=== PATIENT | female | born 1970 | race Caucasian/White ===

== ENCOUNTER 2017-03-25 01:00 | Emergency (ER) | payer BC ==
[~2017-03-25] VITALS: Ht 172.7 cm; Wt 97.1 kg
[2017-03-25] MEDS ORDERED: IV NORMAL SALINE 1,000ML 1,000 ML ONE (01:10)
[2017-03-25] MEDS ORDERED: KETOROLAC 30 MG/ML VIAL. IV ONE (01:15)
[2017-03-25] MEDS ORDERED: IV NORMAL SALINE 1,000ML 1,000 ML IV ONE (01:15)
[2017-03-25] MEDS ORDERED: HYDROmorphone PF 1 MG/ML DISP.SYRIN IV ONE (01:15)
[2017-03-25] MEDS ORDERED: ONDANSETRON PF 4 MG/2 ML VIAL. IV ONE (01:15)
[2017-03-25 02:06] LABS: ALBUMIN 4.2 g/dL (3.4-5.0); ALBUMIN/GLOBULIN RATIO 1.1 (1.0-1.7); CALCIUM 9.5 mg/dL (8.5-10.1); CREATININE 0.8 mg/dL (0.6-1.0); GFR 76.6; POTASSIUM 3.9 mmol/L (3.5-5.1); TOTAL BILIRUBIN 0.3 mg/dL (0.2-1.0); TOTAL PROTEIN 8.2 g/dL (6.4-8.2)
[2017-03-25 02:10] LABS: BASO # 0.1 x10^3/uL (0.0-0.2); BASO % 1 % (0-3); EOS # 0.1 x10^3/uL (0.0-0.7); EOS % 0 % (0-3); HEMATOCRIT 47.5 % (36.0-47.0); HEMOGLOBIN 16.3 g/dL (12.0-15.5); LYMPH # 2.5 x10^3/uL (1.0-4.8); LYMPH % 18 % (24-48); MEAN CORPUSCULAR HEMOGLOBIN 33 pg (25-35); MEAN CORPUSCULAR HGB CONC 34 g/dL (31-37); MEAN CORPUSCULAR VOLUME 97 fL (79-100); MONO # 0.8 x10^3/uL (0.0-1.1); MONO % 6 % (0-9); NEUT # 10.5 x10^3uL (1.8-7.7); NEUT % 75 % (31-73); PLATELET COUNT 251 x10^3/uL (140-400); RED BLOOD COUNT 4.92 x10^6/uL (3.50-5.40); RED CELL DISTRIBUTION WIDTH 13.9 % (11.5-14.5)
--- NOTE | 2017-03-25 02:21 | RAD ---
Examination: Ultrasound abdomen right upper quadrant HISTORY: History of right upper quadrant pain COMPARISON: None available Findings: The pancreas is not well-visualized. Visualized IVC appears patent. The echogenicity liver grossly appears unremarkable. The right lobe of the liver measures 16.0 cm. No evidence of gallstones identified within the gallbladder. The gallbladder wall thickness measures 2.1 mm. The common bile duct measures 4.1 mm in transverse dimension. The right kidney measures 10.0 cm in length. IMPRESSION: 1. No evidence of gallstones. Unremarkable visualized exam. Electronically signed by: Jeff Sage MD (03/25/2017 2:19 AM) [id number]
[2017-03-25 03:15] LABS: BILIRUBIN,URINE NEG (NEG); CLARITY,URINE CLOUDY; COLOR,URINE YELLOW; GLUCOSE,URINE NEG (NEG)
[2017-03-25 03:16] LABS: AMORPHOUS SEDIMENT,UR PRESENT /HPF; BACTERIA,URINE MOD /HPF (0-FEW); NITRITE,URINE NEG (NEG); RBC,URINE OCC /HPF (0-2); SQUAMOUS EPITHELIAL CELL,UR MOD /LPF; UROBILINOGEN,URINE 0.2 mg/dL (0.2 mg/dL)
[2017-03-25] MEDS ORDERED: IOHEXOL 300 MG/ML 75 ML VIAL. IV ONE (03:30)
[2017-03-25 03:34] VITALS: BP 123/49
[2017-03-25] MEDS ORDERED: CONTRAST GIVEN MC PRN (03:45)
--- NOTE | 2017-03-25 04:35 | RAD ---
Examination: CT of the abdomen pelvis with IV contrast. HISTORY: History of upper abdominal pain COMPARISON: None available TECHNIQUE: Axial CT images of the abdomen pelvis were performed with IV contrast. Coronal and sagittal reformats are performed Exposure: One or more of the following individualized dose reduction techniques were utilized for this examination: 1. Automated exposure control 2. Adjustment of the mA and/or kV according to patient size 3. Use of iterative reconstruction technique FINDINGS: Minimal bibasilar lung atelectasis. No evidence of free air identified in the abdomen. The visualized liver demonstrates tiny subcentimeter hypodensity the left lobe of the liver probably cyst is too small to characterize. The visualized spleen, adrenals grossly appears unremarkable. The gallbladder is mildly distended. The stomach is mildly distended with fluid. Few fluid distended small bowel loops identified in the mid abdomen. Minimal fat stranding identified about the distended small bowel loops in the left mid abdomen. The appendix is normal. Feces and gas noted in the colon. Urinary bladder is mildly distended. The bilateral kidneys enhance symmetrically. The caliber of the aorta grossly appears unremarkable. No evidence of lytic bony destructive lesion. Prior changes of inguinal hernia repair. IMPRESSION: 1. Multiple fluid distended small bowel loops identified in the mid abdomen with minimal fat stranding about the distended small bowel loops in the left midabdomen , partial small bowel obstruction or enteritis are possibilities. Electronically signed by: Jeff Sage MD (03/25/2017 4:32 AM) [facility]
[2017-03-25] MEDS ORDERED: HYOS0.1265 SL (05:22)
[2017-03-25] MEDS ORDERED: HYDR-971 PO (05:22)
--- NOTE | 2017-03-25 05:22 | PHYS DOC ---
Past History Past Medical History: Other Past Surgical History: Other Alcohol Use: None Drug Use: None Social History Narrative: Home with family Adult General Chief Complaint Chief Complaint: ABDOMINAL PAIN HPI HPI Patient is a 46-year-old female who presents here today complaining of abdominal pain and crampiness around 10:30 PM. Patient reports that she had been up around 8 PM or so. Patient reports the pain got severe around midnight and so came to the ER. Patient reports no past medical history. No hypertension diabetes liver longer kidney problems. Patient with a history of a hernia repair in the past. Patient does not smoke drink or do any drugs. Patient is allergic to any medications. Patient reports she has been moving her bowels and passing gas since the pain. Patient has a dysuria frequency or urgency. Patient has any chest pain or shortness of breath. Patient has any fevers cough cold or runny nose. Patient denies any similar type pains. Patient denies history of cholecystectomy or appendectomy in the past. Patient reports pain is greatest in the upper abdomen greatest in the right upper quadrant. Review of systems: Constitutional: Denies fever or chills Eyes: Denies change in visual acuity, redness, or eye pain HENT: Denies nasal congestion or sore throat All other review systems are negative except as documented in the history of present illness portion. Physical exam: Constitutional: Well developed, well nourished, no acute distress, non-toxic appearance. HENT: Normocephalic, atraumatic, bilateral external ears normal, oropharynx moist, no oral exudates, nose normal. Eyes: PERRLA, EOMI, conjunctiva normal, no discharge. Neck: Normal range of motion, no tenderness, supple, no stridor. Cardiovascular:Heart rate regular rhythm Lungs & Thorax: Bilateral breath sounds clear to auscultation Abdomen:Abdomen soft and right upper quadrant tenderness greater than left upper quadrant which is greater than her lower abdomen. No rebound or guarding NABS. No Broderick sign, no tenderness to McBurney's point. Patient not present with any signs or symptoms of be consistent with an acute surgical abdomen. Skin: Warm, dry, no erythema, no rash. Back: No tenderness, no CVA tenderness. Extremities: No tenderness, no cyanosis, no clubbing, ROM intact, no edema. Neurologic: Alert and oriented X 3, normal motor function, normal sensory function, no focal deficits noted. Psychologic: Affect normal, judgement normal, mood normal. Patient's ER workup has been unremarkable for. Patient had labs drawn which were all within normal limits. Patient have a slightly elevated WBC count which is nonspecific. Patient had a UA that was unremarkable. Patient did have a few blood cells in her urine however not enough to be significant to cause this pain or treat for urinary tract infection at this time. Patient's presentation is very classic for cholelithiasis. Patient had an ultrasound of the abdomen performed which did not show any acute pathology. Impression was no evidence of gallstones unremarkable visualized exam. Due to her amount of pain when I first saw her we got a CT scan of the abdomen with IV contrast. The CT scan with IV contrast revealed multiple fluid distended small bowel loops identified in the mid abdomen with minimal fat stranding around the distended small bowel loops in the left mid abdomen. Partial small bowel obstruction or enteritis are possibilities. I went to reevaluate the patient and she currently feels well. Patient reports that she is concerned that the pain might come back however she reports the pain is currently completely gone except for a little bit of an ache in her lower abdomen now. Patient did receive pain medicines upon first arrival secondary to my suspicion that this was biliary colic. Patient did receive IV fluids. Given the questionable small bowel obstruction I did offer admission to the patient. Patient reports she hasn't moved her bowels and she reports she does not want to stay in the hospital because she has a child to take care of at home. I offered the option of admission versus discharge to home with extremely close follow-up and low threshold to return the ER if the pain returns. Patient has promised to return the ER if the pain is not resolved in 12 hours. Patient is requesting something assist her with the pain because of fear the pain comes back now because she has pain currently. I discussed with the patient I would give her enough to last her for half a day because I do want her to come back to the pain does return. Patient be discharged home in stable condition. Etiology of the pain is still unclear whether or not it was related to enteritis versus early small bowel obstruction. Patient understands that they are both possibilities. Her are in agreement that she would be more helpful at home and will return if the pain worsens. Current Medications Current Medications Current Medications Medications (Trade) Dose Ordered Sig/Chris Start Time Stop Time Status Last Admin Dose Admin Hydromorphone HCl (Dilaudid) 1 mg 1X ONCE 03/25/17 01:15 03/25/17 03:31 DC 03/25/17 01:15 1 MG Info (Do NOT chart on this entry -- for MONITORING) 1 each PRN DAILY PRN 03/25/17 03:45 03/27/17 03:44 Iohexol (Omnipaque 300 Mg/ml) 75 ml 1X ONCE 03/25/17 03:30 03/25/17 03:31 DC 03/25/17 03:52 75 ML Ketorolac Tromethamine (Toradol) 30 mg 1X ONCE 03/25/17 01:15 03/25/17 03:31 DC 03/25/17 01:15 30 MG Ondansetron HCl (Zofran) 4 mg 1X ONCE 03/25/17 01:15 03/25/17 03:31 DC 03/25/17 01:15 4 MG Sodium Chloride 1,000 ml @ 1,000 mls/hr 1X ONCE 03/25/17 01:15 03/25/17 03:31 DC 03/25/17 01:15 1,000 MLS/HR Allergies Allergies Allergies Coded Allergies Type Severity Reaction Last Updated Verified No Known Drug Allergies 03/25/17 No Current Patient Data Vital Signs Vital Signs Date Time Temp Pulse Resp B/P (MAP) Pulse Ox O2 Delivery O2 Flow Rate FiO2 03/25/17 02:21 65 20 110/41 (64) 96 Nasal Cannula 2.0 03/25/17 01:00 98.1 Lab Results Laboratory Tests Test 03/25/17 01:34 03/25/17 02:53 03/25/17 03:03 White Blood Count 14.0 x10^3/uL (4.0-11.0) H Red Blood Count 4.92 x10^6/uL (3.50-5.40) Hemoglobin 16.3 g/dL (12.0-15.5) H Hematocrit 47.5 % (36.0-47.0) H Mean Corpuscular Volume 97 fL (79-100) Mean Corpuscular Hemoglobin 33 pg (25-35) Mean Corpuscular Hemoglobin Concent 34 g/dL (31-37) Red Cell Distribution Width 13.9 % (11.5-14.5) Platelet Count 251 x10^3/uL (140-400) Neutrophils (%) (Auto) 75 % (31-73) H Lymphocytes (%) (Auto) 18 % (24-48) L Monocytes (%) (Auto) 6 % (0-9) Eosinophils (%) (Auto) 0 % (0-3) Basophils (%) (Auto) 1 % (0-3) Neutrophils # (Auto) 10.5 x10^3uL (1.8-7.7) H Lymphocytes # (Auto) 2.5 x10^3/uL (1.0-4.8) Monocytes # (Auto) 0.8 x10^3/uL (0.0-1.1) Eosinophils # (Auto) 0.1 x10^3/uL (0.0-0.7) Basophils # (Auto) 0.1 x10^3/uL (0.0-0.2) Sodium Level 143 mmol/L (136-145) Potassium Level 3.9 mmol/L (3.5-5.1) Chloride Level 102 mmol/L (98-107) Carbon Dioxide Level 31 mmol/L (21-32) Anion Gap 10 (6-14) Blood Urea Nitrogen 19 mg/dL (7-20) Creatinine 0.8 mg/dL (0.6-1.0) Estimated GFR (Cockcroft-Gault) 76.6 BUN/Creatinine Ratio 24 (6-20) H Glucose Level 105 mg/dL (70-99) H Calcium Level 9.5 mg/dL (8.5-10.1) Total Bilirubin 0.3 mg/dL (0.2-1.0) Aspartate Amino Transferase (AST) 6 U/L (15-37) L Alanine Aminotransferase (ALT) 19 U/L (14-59) Alkaline Phosphatase 77 U/L (46-116) Total Protein 8.2 g/dL (6.4-8.2) Albumin 4.2 g/dL (3.4-5.0) Albumin/Globulin Ratio 1.1 (1.0-1.7) Lipase 106 U/L (73-393) Urine Collection Type Unknown Urine Color Yellow Urine Clarity Cloudy Urine pH 8.5 Urine Specific [place] 1.015 Urine Protein 100 mg/dl (NEG-TRACE) Urine Glucose (UA) Neg mg/dL (NEG) Urine Ketones (Stick) Neg mg/dL (NEG) Urine Blood Neg (NEG) Urine Nitrite Neg (NEG) Urine Bilirubin Neg (NEG) Urine Urobilinogen Dipstick 0.2 mg/dL (0.2 mg/dL) Urine Leukocyte Esterase Neg (NEG) Urine RBC Occ /HPF (0-2) Urine WBC 5-10 /HPF (0-4) Urine Squamous Epithelial Cells Mod /LPF Urine Amorphous Sediment Present /HPF Urine Bacteria Mod /HPF (0-FEW) Urine Mucus Mod /LPF POC Urine HCG, Qualitative hcg negative (Negative) EKG EKG [] Radiology/Procedures Radiology/Procedures [] Course & Med Decision Making Course & Med Decision Making Pertinent Labs and Imaging studies reviewed. (See chart for details) [] Dragon Disclaimer Dragon Disclaimer This chart was dictated in whole or in part using Voice Recognition software in a busy, high-work load, and often noisy Emergency Department environment. It may contain unintended and wholly unrecognized errors or omissions. Departure Departure: Impression: Primary Impression: Abdominal pain Disposition: 01 HOME, SELF-CARE Condition: IMPROVED Referrals: PCP,NO (PCP) Patient Instructions: Abdominal Pain (Nonspecific) Additional Instructions: You were evaluated today in the ER for abdominal pain. Etiology of your pain was not definitively determined. As we discussed and there is a possibility that this might be an early small bowel obstruction. This might also be related to a gastroenteritis or stomach flu or something that you ate or excessive gas. As we discussed, urged home today with strict instructions to return to the ER if you have any increasing pain or if she did not move her bowels are have passing of gas over the next 12 hours. Please return to the ER if for any reason you change your mind about wanting to be admitted to the hospital. Scripts Hyoscyamine Sulfate (LEVSIN-SL) 0.125 Mg Tab.subl 1-2 TAB SL PRN Q6HRS Y for abd pain, #10 TAB 1 Refill Prov: KISHA ESTRADA MD 03/25/17 Hydrocodone Bit/Acetaminophen (NORCO 5-325 TABLET) 1 Each Tablet 1 TAB PO PRN Q6HRS Y for PAIN, #8 TAB 0 Refills Prov: KISHA ESTRADA MD 03/25/17 KISHA ESTRADA MD Mar 25, 2017 05:22
== END 2017-03-25 05:23 | disposition home or self-care (01) ==
LOC: ER 01:00
DX: R10.11 Right upper quadrant pain (principal)
CPT/HCPCS: 36415; 74177; 76705; 80053; 81001; 81025; 83690; 85025; 87086; 96361; 96374; 96375; 99285; J1170; J1885; J2405; Q9967; J7030

== ENCOUNTER → 2018-10-05 | Outpatient (CLI) | payer BC ==
[~2018-10-05] MED LIST: HYDR-3165 PO; HYOS0.1265 SL
--- NOTE | 2018-10-05 10:01 | RAD ---
DATE: October 05, 2018 EXAM: MAMMO XENIA SCREENING BILATERAL HISTORY: Screening study. COMPARISON: May 10, 2014 This study was interpreted with the benefit of Computerized Aided Detection (CAD). FINDINGS: Breast Density: SCATTERED The breast parenchyma shows scattered fibroglandular densities. Breast parenchyma level B.. There is a new nodule of the 6 clock position of the left breast located 8-9 cm from the nipple and measuring 14 mm in size. No clustering of pleomorphic microcalcifications are evident on either side. IMPRESSION: New nodule of the left breast. Sonography of the left breast is needed. BI-RADS CATEGORY: 0 INCOMPLETE: NEEDS ADDITIONAL IMAGING EVALUATION AND/OR PRIOR MAMMOGRAMS FOR COMPARISON. RECOMMENDED FOLLOW-UP: ADD ADDITIONAL IMAGING PQRS compliance statement: Patient information was entered into a reminder system with a target due date now for the next imaging study. Mammography is a sensitive method for finding small breast cancers, but it does not detect them all and is not a substitute for careful clinical examination. A negative mammogram does not negate a clinically suspicious finding and should not result in delay in biopsying a clinically suspicious abnormality. "Our facility is accredited by the [employer] Mammography Program." The patient's breast density may affect the ability of mammography to detect breast cancer. There are 4 categories of breast density, A, B, C and D. Breast density A means that most of the breast tissue is replaced with adipose tissue and therefore is not dense. Breast density B means that the breast tissue is mildly dense and scattered. Breast density C means that the breast tissue is heterogeneously dense. Breast density D means that the breast tissue is very dense. Breast densities especially C and D may decrease the sensitivity of mammography to detect breast cancer. Therefore, the patient may benefit from 3-D breast mammography (3D breast tomography) as a part of their screening mammogram. Insurance may or may not pay for this additional imaging. The patient's breast density based on today's mammogram is category B.
== END | disposition home or self-care (01) ==
LOC: MAMMO 08:46
PROVIDERS: ATTEND Family Medicine
DX: Z12.31 Encounter for screening mammogram for malignant neoplasm of breast (principal); N63.24 Unspecified lump in the left breast, lower inner quadrant
CPT/HCPCS: 77063; 77067

== ENCOUNTER → 2018-10-12 | Outpatient (CLI) | payer BC ==
--- NOTE | 2018-10-12 14:02 | RAD ---
INDICATION: 48 year-old female presents for further evaluation of a finding seen on prior mammogram TECHNIQUE: Targeted high resolution sonography of the inferior left breast was performed was performed. COMPARISON: Prior mammogram 10/05/2018 FINDINGS: At the 6:00 position approximately 8 cm from the nipple there is a 0.9 x 0.8 x 0.9 cm irregular hypoechoic mass which corresponds to findings from prior mammogram. IMPRESSION: Suspicious finding at the 6:00 position, 8 cm from the nipple. RECOMMENDATION: Ultrasound guided left breast biopsy is recommended at the nodular mass seen at the 6:00 position, 8 cm from the nipple BI-RADS 4: Suspicious. Biopsy is recommended. Electronically signed by: Rudy Chowdhury MD (10/12/2018 2:00 PM) [facility]
== END | disposition home or self-care (01) ==
LOC: US 12:47
PROVIDERS: ATTEND Family Medicine
DX: R92.8 Other abnormal and inconclusive findings on diagnostic imaging of breast (principal)
CPT/HCPCS: 76641

== ENCOUNTER → 2019-10-07 | Outpatient (CLI) | payer BC ==
--- NOTE | 2019-10-07 18:03 | RAD ---
Bilateral digital diagnostic mammogram. INDICATION: 49-year-old woman due for bilateral mammographic screening presents for diagnostic evaluation status post breast conservation surgery for inferior left breast cancer. COMPARISON: Mammograms of 04/19/2013, 10/05/2018 and left breast ultrasound of 10/12/2018. TECHNIQUE: CC and MLO views of both breasts with 2-D and 3-D technique were obtained and reviewed with computer-aided detection. In addition, spot compression views of the left breast in the CC projection and a full-field left ML view were obtained. A spot compression left MLO view was also obtained. FINDINGS: Heterogeneously dense breast parenchyma. The right mammogram is negative. The left breast shows diffuse skin thickening and trabecular coarsening consistent with recent posttreatment changes. Architectural variation in the inferior left breast middle third is newly present, representing a benign surgical scar from interval lumpectomy. The mass identified on prior screening is no longer evident. Computer aided detection identified an asymmetry in the lateral left breast that did not persist with additional imaging. IMPRESSION: Benign findings. No evidence of malignancy. Recommend return to routine screening which will next be due in one year in the absence of any clinical concerns. BI-RADS Category 2 Benign Patient entered into a reminder system with target due date for next mammogram.
== END | disposition home or self-care (01) ==
LOC: MAMMO 08:32
PROVIDERS: ATTEND Radiology Radiation Oncology
DX: R92.2 Inconclusive mammogram (principal); Z85.3 Personal history of malignant neoplasm of breast
CPT/HCPCS: 77066; G0279; 77062

== ENCOUNTER → 2020-10-09 | Outpatient (CLI) | payer BC ==
--- NOTE | 2020-10-09 18:41 | RAD ---
PROCEDURE: MG DIGITAL BILAT DIAGNOSTIC MAMMO WITH XENIA HISTORY: The patient is 50 years old and is seen for Reason: HX OF BREAST CA / Spl. Instructions: / History: . COMPARISON: Bilateral mammogram of 10/07/2019 TECHNIQUE: CC and MLO views of both breasts were obtained with 2-D and 3-D technique. Images were pr ocessed by the [employer] computer-aided detection system. DENSITY: There are scattered fibroglandular densities. FINDINGS: Negative right mammogram. Stable benign postlumpectomy changes in the central lower outer q uadrant left breast. No developing mass, suspicious calcifications or unexplained architectural disto rtion. IMPRESSION: Benign findings. No evidence of malignancy. Recommend return to routine screening next due in one year. BI-RADS category 2 Benign Patient entered into a reminder system for annual screening mammogram. BI-RADS 2 -- benign findings Electronically signed by: Ronnie Wiseman MD (10/09/2020 6:39 PM) [id number]
== END ==
LOC: MAMMO 14:38
PROVIDERS: ATTEND Internal Medicine Hematology & Oncology
DX: C50.112 Malignant neoplasm of central portion of left female breast (principal); Z17.0 Estrogen receptor positive status [ER+]
CPT/HCPCS: 77066; G0279; 77062

== ENCOUNTER → 2020-10-26 | Outpatient (CLI) | payer BC ==
--- NOTE | 2020-10-26 11:56 | RAD ---
3 views left third finger INDICATION: Smash injury to the middle tuft COMPARISON: None FINDINGS: Normal osseous mineralization and alignment with no fracture or aggressive bony lesions. There is sof t tissue swelling at the base of the nailbed. No abnormal soft tissue gas or radiopaque foreign body. IMPRESSION: Radiographic evidence of soft tissue injury but no fracture or traumatic malalignment of the distal p halanx of the left third finger. Electronically signed by: Ronnie Wiseman MD (10/26/2020 11:53 AM) [id number]
== END ==
LOC: DXRAD 11:11
PROVIDERS: ATTEND Registered Nurse
DX: M79.644 Pain in right finger(s) (principal)
CPT/HCPCS: 73140

== ENCOUNTER → 2020-12-12 | Outpatient (CLI) | payer BC ==
[~2020-12-12] MED LIST changes: +GABA-586 PO; +TAMO20TA PO; +multivitamin
== END ==
LOC: LAB 14:59
PROVIDERS: ATTEND Nurse Anesthetist, Certified Registered
DX: Z01.812 Encounter for preprocedural laboratory examination (principal); Z20.822 Contact with and (suspected) exposure to COVID-19
CPT/HCPCS: U0003

== ENCOUNTER → 2020-12-15 | Day surgery (SDC) | payer BC ==
[~2020-12-15] MED LIST changes: +IPRATRPIUM/ALBUTEROL 0.5/2.5MG 3 ML NEBU. NEB PRN; +IV RINGERS SOLUTION,LACTATED 1,000 ML IV SCH; +LIDOCAINE 2% PF 5 ML VIAL. ONE; +MIDAZOLAM HCL PF 2 MG/2 ML VIAL. IV ONE; +ONDANSETRON PF 4 MG/2 ML VIAL. IV PRN; +PROPOFOL 10,000 MCG/ML (20ML) VIAL IV ONE
[2020-12-15 13:11] VITALS: BP 109/53
== END | disposition home or self-care (01) ==
LOC: SURG 10:42
PROVIDERS: ATTEND Internal Medicine Gastroenterology
DX: Z12.11 Encounter for screening for malignant neoplasm of colon (principal); K64.8 Other hemorrhoids; Z85.3 Personal history of malignant neoplasm of breast; Z79.899 Other long term (current) drug therapy; Z98.890 Other specified postprocedural states; Z88.8 Allergy status to other drugs, medicaments and biological substances
CPT/HCPCS: 45378; J2001; J2704

== ENCOUNTER → 2021-10-22 | Outpatient (CLI) | payer BC ==
[2020-12-15 13:11] VITALS: BP 109/53
[~2021-10-22] MED LIST changes: -IPRATRPIUM/ALBUTEROL 0.5/2.5MG 3 ML NEBU. NEB PRN; -IV RINGERS SOLUTION,LACTATED 1,000 ML IV SCH; -LIDOCAINE 2% PF 5 ML VIAL. ONE; -MIDAZOLAM HCL PF 2 MG/2 ML VIAL. IV ONE; -ONDANSETRON PF 4 MG/2 ML VIAL. IV PRN; -PROPOFOL 10,000 MCG/ML (20ML) VIAL IV ONE
--- NOTE | 2021-10-22 13:11 | RAD ---
PROCEDURE: MG BILAT SCREEN+XENIA HISTORY: The patient is 51 years old and is seen for Reason: SCREENING / Spl. Instructions: / Histor y: . COMPARISON: October 09, 2020, October 07, 2019 and October 05, 2018 TECHNIQUE: CC and MLO views of both breasts were obtained. Images were processed by the [employer] computer-aided detection system. DENSITY: There are scattered fibroglandular densities. FINDINGS: Postlaminectomy changes left lateral breast, similar compared to prior. No suspicious iggy rocatheter tissue, mass or architectural distortion. IMPRESSION: Left breast postlumpectomy changes. Benign findings. No evidence of malignancy. Recommend annual screening mammograms per [place] [employer] guidelines. She will be due in one year. BI-RADS category 2 Benign Patient entered into a reminder system for annual screening mammogram. Electronically signed by: Irvin Lloyd DO (10/22/2021 1:08 PM) [id number]
== END ==
LOC: MAMMO 09:49
PROVIDERS: ATTEND Internal Medicine Hematology & Oncology
DX: Z12.31 Encounter for screening mammogram for malignant neoplasm of breast (principal)
CPT/HCPCS: 77063; 77067